=== PATIENT | female | born 1965 | race Caucasian/White ===

== ENCOUNTER 2017-12-28 18:05 | Inpatient (IN) | payer OTHER ==
[~2017-12-28] VITALS: Ht 170.2 cm; Wt 206.4 kg
[~2017-12-28 18:05] MED LIST: ETOMIDATE 20 MG/10 ML ONE; MIDAZOLAM 1 MG/ML, 5ML ONE; PROPOFOL 10 MG/ML, 100ML IV ONE; PROPOFOL 10 MG/ML, 20ML ONE; SUCCINYLCHOLINE 20 MG/ML, 10ML ONE; VECURONIUM 10 MG ONE
[2017-12-28] MEDS ORDERED: ALBUTEROL SULFATE 2.5 MG/3 ML ONE (18:12)
[2017-12-28] MEDS ORDERED: VERAPAMIL 2.5 MG/ML, 2ML IVPush ONE (18:30)
[2017-12-28] MEDS ORDERED: methylPREDNISolone SOD SUCC 125 MG/2 ML IVP ONE (18:30)
[2017-12-28] MEDS ORDERED: SODIUM CHLORIDE FLUSH 10ML SYR IVF ONE ×2 (18:30→19:30)
[2017-12-28] MEDS ORDERED: ALBUTEROL/IPRATROPIUM 2.5MG/0.5MG, 3 ML NPPB SCH (18:30)
[2017-12-28] MEDS ORDERED: FUROSEMIDE 20 MG/2 ML ONE (18:32)
[2017-12-28] MEDS ORDERED: VERAPAMIL 2.5 MG/ML, 2ML ONE (18:32)
[2017-12-28] MEDS ORDERED: methylPREDNISolone SOD SUCC 125 MG/2 ML ONE (18:33)
[2017-12-28] MEDS ORDERED: NITROGLYCERIN/D5W PMX 0 ML ONE (18:35)
[2017-12-28 18:51] LABS: MEAN CORPUSCULAR HEMOGLOBIN 27.8 pg (27.0-34.8); MEAN CORPUSCULAR HGB CONC 31.9 g/dL (32.4-35.8); MEAN CORPUSCULAR VOLUME 87.1 fL (80-100); MEAN PLATELET VOLUME 8.3 fL (7.4-10.4); PLATELET COUNT 465 x10^3/uL (130-400); RED BLOOD COUNT 4.66 x10^6/uL (3.82-5.3); RED CELL DISTRIBUTION WIDTH 17.2 % (9.6-15.2)
[2017-12-28 18:59] LABS: ALBUMIN 3.1 g/dL (3.4-5.0); ANION GAP 15 mmol/L (5-15); CALCIUM 8.5 mg/dL (8.5-10.1); CHLORIDE 105 mmol/L (98-107); CREATININE 1.89 mg/dL (0.55-1.02)
[2017-12-28] MEDS ORDERED: FUROSEMIDE 40 MG/4 ML IV ONE (19:00)
[2017-12-28] MEDS: PROPOFOL 100 ML IV PRN ×2 (19:00→19:31)
[2017-12-28 19:03] LABS: TROPONIN I 0.097 ng/mL (0.000-0.045)
[2017-12-28 19:07] LABS: MD YES
[2017-12-28 19:10] LABS: BAND#(MANUAL) 0.26 x10^3/uL; BANDS%(MANUAL) 1 % (0-7); EOS#(MANUAL) 0.26 x10^3/uL (0.0-0.4); EOS% (MANUAL) 1 % (1-7); METAMYELOCYTES# (MANUAL) 0.26 x10^3/uL (0-0); METAMYELOCYTES% (MANUAL) 1 % (0-1); NRBC % (MANUAL) 1 % (0-1); SEG#(MANUAL) 21.25 x10^3/uL (1.8-6.8); SEGS% (MANUAL) 83 % (42-75)
[2017-12-28 19:11] LABS: INTERNATIONAL NORMALIZED RATIO 1.26 (0.93-1.1); LYMPH#(MANUAL) 2.56 x10^3/uL (1-3.4); LYMPHS% (MANUAL) 10 % (22-44); MONOS#(MANUAL) 1.02 x10^3/uL (0.3-2.7); MONOS% (MANUAL) 4 % (2-9); PROTHROMBIN TIME 12.9 Seconds (9.6-11.5)
[2017-12-28 19:12] LABS: <PLATELET ESTIMATE> INCREASED; <PLT MORPHOLOGY> NORMAL PLT MORPH; ANISOCYTOSIS 1+; POLYCHROMASIA 1+
[2017-12-28] MEDS ORDERED: VANCOMYCIN PER PHARMACY IV ONE (19:30)
[2017-12-28] MEDS ORDERED: PIPERACILLIN/TAZO/PMX 3.375GM 50 ML IVPB ONE (19:30)
[2017-12-28] MEDS ORDERED: SUCCINYLCHOLINE 20 MG/ML, 10ML IVPush ONE (19:30)
[2017-12-28] MEDS ORDERED: ETOMIDATE 20 MG/10 ML IV ONE (19:30)
[2017-12-28] MEDS ORDERED: VANCOMYCIN 2,200 MG in SODIUM CHLORIDE 0.9% 500 ML IV ONE (19:30)
[2017-12-28] MEDS ORDERED: VECURONIUM 10 MG IVPush ONE (19:30)
[2017-12-28] MEDS ORDERED: SODIUM CHLORIDE 0.9% 1,000ML IVBOLUS ONE (19:30)
[2017-12-28] MEDS ORDERED: DILTIAZEM 125 MG in DEXTROSE 5% 100 ML IV SCH (19:31)
[2017-12-28] MEDS ORDERED: SODIUM CHLORIDE FLUSH 10ML SYR IVF PRN (20:00)
[2017-12-28] MEDS ORDERED: PIPERACILLIN/TAZO/PMX 3.375GM 50 ML ONE (20:13)
[2017-12-28] MEDS ORDERED: ONDANSETRON 2MG/ML, 2ML IVPush PRN (20:30)
[2017-12-28] MEDS ORDERED: hydrALAzine 20 MG/ML, 1ML IVPush PRN (20:30)
[2017-12-28] MEDS ORDERED: DILTIAZEM 125 MG in SODIUM CHLORIDE 0.9% 100 ML IV PRN (20:30)
[2017-12-28] MEDS ORDERED: PROPOFOL 100 ML IV PRN (20:49)
[2017-12-28] MEDS: SODIUM CHLORIDE 0.9% 1,000 ML IV SCH (20:52)
[2017-12-28] MEDS ORDERED: LIDOCAINE-MPF 1%, 2ML ENDO PRN (21:00)
[2017-12-28] MEDS ORDERED: PHARMACY MAY ADJ FOR RENAL FX MC SCH (21:00)
[2017-12-28] MEDS ORDERED: HEPARIN 5,000 UNITS/ML, 1ML ONE (21:29)
[2017-12-28] MEDS: HEPARIN 5,000 UNITS/ML, 1ML SQ SCH (21:32)
[2017-12-28] MEDS: INSULIN LISPRO 100 UNITS/ML, PEN SQ-INSULIN SCH (21:41)
[2017-12-28] MEDS ORDERED: ALBUTEROL/IPRATROPIUM 2.5MG/0.5MG, 3 ML ONE (21:53)
[2017-12-28] MEDS ORDERED: PROPOFOL 100 ML IV ONE (23:58)
[2017-12-29] MEDS ORDERED: FURO20TA3 PO (01:14)
[2017-12-29] MEDS ORDERED: RIVA20TA PO (01:14)
[2017-12-29] MEDS ORDERED: LEVO300T4 PO (01:14)
[2017-12-29] MEDS ORDERED: OMEP-110 PO (01:14)
[2017-12-29] MEDS ORDERED: DILT240C9 PO (01:14)
[2017-12-29] MEDS ORDERED: SENN1TAB67 PO (01:14)
[2017-12-29] MEDS ORDERED: ACET250T2 PO (01:14)
[2017-12-29] MEDS ORDERED: CETI10CA PO (01:14)
[2017-12-29] MEDS ORDERED: LISI-170 PO (01:14)
[2017-12-29] MEDS ORDERED: CALCIUM MAG ZINC PO (01:14)
[2017-12-29] MEDS ORDERED: POTA10CA PO (01:14)
[2017-12-29] MEDS ORDERED: MORPHINE ER PO (01:14)
[2017-12-29] MEDS ORDERED: ALEN70TA5 PO (01:14)
[2017-12-29] MEDS ORDERED: TIOT18CA INH (01:14)
[2017-12-29] MEDS ORDERED: VIT C PO (01:14)
[2017-12-29] MEDS ORDERED: HYDR100T25 PO (01:14)
[2017-12-29] MEDS ORDERED: HUMULIN NPH SC (01:14)
[2017-12-29] MEDS ORDERED: INSU100V5 SQ-INSULIN (01:14)
[2017-12-29] MEDS ORDERED: MONT10TA9 PO (01:14)
[2017-12-29] MEDS ORDERED: HYDROCODONE PO (01:14)
[2017-12-29] MEDS ORDERED: FLUT1DIS5 IH (01:14)
[2017-12-29] MEDS ORDERED: ALBUTEROL/IPRATROPIUM 2.5MG/0.5MG, 3 ML ONE (02:14)
[2017-12-29] MEDS: ALBUTEROL/IPRATROPIUM 2.5MG/0.5MG, 3 ML NPPB SCH ×3 (02:20→10:30)
[2017-12-29] MEDS ORDERED: PROPOFOL 100 ML IV ONE ×4 (02:55→09:51)
[2017-12-29 04:49] LABS: MEAN CORPUSCULAR HEMOGLOBIN 27.4 pg (27.0-34.8); MEAN CORPUSCULAR HGB CONC 31.7 g/dL (32.4-35.8); MEAN CORPUSCULAR VOLUME 86.6 fL (80-100); MEAN PLATELET VOLUME 8.3 fL (7.4-10.4); PLATELET COUNT 372 x10^3/uL (130-400); RED BLOOD COUNT 4.36 x10^6/uL (3.82-5.3); RED CELL DISTRIBUTION WIDTH 16.9 % (9.6-15.2)
[2017-12-29 04:50] LABS: ALBUMIN 2.9 g/dL (3.4-5.0); ANION GAP 11 mmol/L (5-15); CALCIUM 7.8 mg/dL (8.5-10.1); CHLORIDE 102 mmol/L (98-107)
[2017-12-29 05:02] LABS: ALANINE AMINOTRANSFERASE 668 U/L (12-78); ALKALINE PHOSPHATASE 101 U/L (45-117); BILIRUBIN,TOTAL 0.9 mg/dL (0.2-1.0); CREATININE 1.78 mg/dL (0.55-1.02); THYROID STIMULATING HORMONE 0.417 mIU/L (0.358-3.740); TOTAL PROTEIN 5.9 g/dL (6.4-8.2)
[2017-12-29 05:30] LABS: BASOPHILS # (AUTO) 0.02 x10^3/uL (0-0.1); BASOPHILS % (AUTO) 0 % (0-1); EOSINOPHILS % (AUTO) 0 % (1-7); LYMPHOCYTES # (AUTO) 0.72 x10^3/uL (1-3.4); LYMPHOCYTES % (AUTO) 4 % (22-44); MD SCAN; MONOCYTES # (AUTO) 0.74 x10^3/uL (0.2-0.8); MONOCYTES % (AUTO) 4 % (2-9); NEUTROPHILS # (AUTO) 18.55 x10^3/uL (1.8-6.8); NEUTROPHILS % (AUTO) 93 % (42-75)
[2017-12-29] MEDS: SODIUM CHLORIDE 0.9% 1,000 ML IV SCH (06:05)
[2017-12-29] MEDS: HEPARIN 5,000 UNITS/ML, 1ML SQ SCH ×3 (06:10→20:53)
[2017-12-29] MEDS ORDERED: HEPARIN 5,000 UNITS/ML, 1ML ONE (06:11)
[2017-12-29] MEDS: INSULIN LISPRO 100 UNITS/ML, PEN SQ-INSULIN SCH ×4 (07:52→23:25)
[2017-12-29] MEDS ORDERED: PANTOPRAZOLE 40 MG IV ONE (11:11)
[2017-12-29] MEDS: PANTOPRAZOLE 40 MG IV IV SCH (11:14)
[2017-12-29] MEDS ORDERED: AMPICILLIN/SULBACTAM 1,500 MG in SODIUM CHLORIDE 0.9% 50 ML IV SCH (12:00)
[2017-12-29] MEDS: PROPOFOL 100 ML IV PRN ×5 (12:42→22:20)
[2017-12-29 14:08] VITALS: BP 167/112
[2017-12-29] MEDS: FUROSEMIDE 40 MG/4 ML IV SCH (17:42)
[2017-12-29] MEDS: DILTIAZEM 125 MG in SODIUM CHLORIDE 0.9% 100 ML IV PRN (17:44)
[2017-12-29] MEDS ORDERED: FENTANYL PF 100 MCG/2ML IVPush PRN (18:00)
[2017-12-29] MEDS ORDERED: AMPICILLIN/SULBACTAM 3,000 MG in SODIUM CHLORIDE 0.9% 50 ML IV SCH (18:00)
[2017-12-29] MEDS: ALBUTEROL/IPRATROPIUM 2.5MG/0.5MG, 3 ML NPPB PRN (18:45)
[2017-12-29] MEDS ORDERED: SODIUM CHLORIDE 0.9% 1,000 ML IV SCH (20:05)
[2017-12-29] MEDS: AMPICILLIN/SULBACTAM 3 GM in SODIUM CHLORIDE 0.9% 100 ML IV SCH (23:24)
[2017-12-30] MEDS: DILTIAZEM 125 MG in SODIUM CHLORIDE 0.9% 100 ML IV PRN ×2 (00:23→05:43)
[2017-12-30] MEDS: PROPOFOL 100 ML IV PRN ×2 (01:44→07:55)
[2017-12-30 04:00] VITALS: BP 146/104
[2017-12-30 05:04] LABS: MEAN CORPUSCULAR HEMOGLOBIN 27.9 pg (27.0-34.8); MEAN CORPUSCULAR HGB CONC 32.2 g/dL (32.4-35.8); MEAN CORPUSCULAR VOLUME 86.6 fL (80-100); MEAN PLATELET VOLUME 8.5 fL (7.4-10.4); PLATELET COUNT 357 x10^3/uL (130-400); RED BLOOD COUNT 4.18 x10^6/uL (3.82-5.3); RED CELL DISTRIBUTION WIDTH 16.3 % (9.6-15.2)
[2017-12-30 05:10] LABS: ANION GAP 7 mmol/L (5-15); CALCIUM 7.8 mg/dL (8.5-10.1); CHLORIDE 103 mmol/L (98-107); CREATININE 1.41 mg/dL (0.55-1.02)
[2017-12-30] MEDS: HEPARIN 5,000 UNITS/ML, 1ML SQ SCH (05:33)
[2017-12-30] MEDS: INSULIN LISPRO 100 UNITS/ML, PEN SQ-INSULIN SCH ×3 (05:33→17:32)
[2017-12-30] MEDS: AMPICILLIN/SULBACTAM 3 GM in SODIUM CHLORIDE 0.9% 100 ML IV SCH ×4 (05:33→23:22)
[2017-12-30 06:10] LABS: MD MORPH REVIEW ONLY
[2017-12-30 06:11] LABS: <PLATELET ESTIMATE> ADEQUATE; <PLT MORPHOLOGY> NORMAL PLT MORPH; ANISOCYTOSIS 1+; BASOPHILS # (AUTO) 0.11 x10^3/uL (0-0.1); BASOPHILS % (AUTO) 1 % (0-1); EOSINOPHILS # (AUTO) 0.03 x10^3/uL (0-0.4); EOSINOPHILS % (AUTO) 0 % (1-7); LYMPHOCYTES % (AUTO) 8 % (22-44); MONOCYTES # (AUTO) 1.07 x10^3/uL (0.2-0.8); MONOCYTES % (AUTO) 6 % (2-9); NEUTROPHILS # (AUTO) 15.15 x10^3/uL (1.8-6.8); NEUTROPHILS % (AUTO) 85 % (42-75); OVALOCYTES 1+
[2017-12-30 06:12] LABS: POLYCHROMASIA 1+
[2017-12-30] MEDS: FUROSEMIDE 40 MG/4 ML IV SCH ×2 (07:55→17:33)
[2017-12-30] MEDS: POTASSIUM CHLORIDE 10% 40 MEQ/30 ML UDC PO SCH ×2 (07:55→20:41)
[2017-12-30] MEDS: PANTOPRAZOLE 40 MG IV IV SCH (07:55)
[2017-12-30] MEDS ORDERED: RIVAROXABAN 20 MG TABLET PO SCH (10:00)
[2017-12-30] MEDS: LEVOTHYROXINE 100 MCG TABLET PO SCH (11:10)
[2017-12-30] MEDS: LISINOPRIL 20 MG TABLET PO SCH (11:10)
[2017-12-30] MEDS: SODIUM CHLORIDE FLUSH 10ML SYR IVF SCH ×2 (11:11→21:14)
[2017-12-30] MEDS ORDERED: LEVOTHYROXINE 125 MCG TABLET ONE (11:13)
[2017-12-30] MEDS ORDERED: LEVOTHYROXINE 75 MCG TABLET ONE (11:13)
[2017-12-30] MEDS: MORPHINE SULFATE 4 MG/ML, 1ML IVPush PRN ×3 (12:07→17:33)
[2017-12-30] MEDS: HYDROcodone/APAP 10/325 MG TABLET PO PRN (13:00)
[2017-12-30] MEDS: ALBUTEROL/IPRATROPIUM 2.5MG/0.5MG, 3 ML NPPB SCH ×2 (14:25→18:53)
[2017-12-30] MEDS ORDERED: DILTIAZEM 125 MG in SODIUM CHLORIDE 0.9% 100 ML IV PRN (20:30)
[2017-12-30] MEDS: DILTIAZEM 240 MG CAP.ER.24H PO SCH (21:14)
[2017-12-31 04:00] VITALS: BP 146/79
[2017-12-31] MEDS: AMPICILLIN/SULBACTAM 3 GM in SODIUM CHLORIDE 0.9% 100 ML IV SCH ×3 (05:14→17:12)
[2017-12-31 05:37] LABS: BASOPHILS # (AUTO) 0.09 x10^3/uL (0-0.1); BASOPHILS % (AUTO) 1 % (0-1); EOSINOPHILS # (AUTO) 0.07 x10^3/uL (0-0.4); EOSINOPHILS % (AUTO) 1 % (1-7); LYMPHOCYTES # (AUTO) 0.87 x10^3/uL (1-3.4); LYMPHOCYTES % (AUTO) 7 % (22-44); MD NO; MEAN CORPUSCULAR HEMOGLOBIN 27.6 pg (27.0-34.8); MEAN CORPUSCULAR HGB CONC 32.2 g/dL (32.4-35.8); MEAN CORPUSCULAR VOLUME 85.7 fL (80-100); MEAN PLATELET VOLUME 8.1 fL (7.4-10.4); MONOCYTES # (AUTO) 0.63 x10^3/uL (0.2-0.8); MONOCYTES % (AUTO) 5 % (2-9); NEUTROPHILS # (AUTO) 10.51 x10^3/uL (1.8-6.8); NEUTROPHILS % (AUTO) 86 % (42-75); PLATELET COUNT 295 x10^3/uL (130-400); RED BLOOD COUNT 4.02 x10^6/uL (3.82-5.3); RED CELL DISTRIBUTION WIDTH 16.3 % (9.6-15.2)
[2017-12-31 06:32] LABS: ANION GAP 8 mmol/L (5-15); CALCIUM 8.6 mg/dL (8.5-10.1); CHLORIDE 105 mmol/L (98-107); CREATININE 0.99 mg/dL (0.55-1.02)
[2017-12-31] MEDS: INSULIN LISPRO 100 UNITS/ML, PEN SQ-INSULIN SCH ×4 (07:00→22:06)
[2017-12-31] MEDS: ALBUTEROL/IPRATROPIUM 2.5MG/0.5MG, 3 ML NPPB SCH ×5 (07:30→19:34)
[2017-12-31] MEDS: FUROSEMIDE 40 MG/4 ML IV SCH ×2 (08:32→17:13)
[2017-12-31] MEDS: POTASSIUM CHLORIDE 10% 40 MEQ/30 ML UDC PO SCH ×2 (08:32→21:44)
[2017-12-31] MEDS: PANTOPRAZOLE 40 MG IV IV SCH (08:32)
[2017-12-31] MEDS: LISINOPRIL 20 MG TABLET PO SCH (08:33)
[2017-12-31] MEDS: SODIUM CHLORIDE FLUSH 10ML SYR IVF SCH ×2 (08:33→21:45)
[2017-12-31] MEDS: LEVOTHYROXINE 100 MCG TABLET PO SCH (08:33)
[2017-12-31] MEDS: RIVAROXABAN 20 MG TABLET PO SCH (08:33)
[2017-12-31] MEDS: FLUTICASONE/VILANTEROL 200-25MCG/INH INH SCH (09:00)
[2017-12-31] MEDS: HYDROcodone/APAP 10/325 MG TABLET PO PRN ×3 (11:11→13:35)
[2017-12-31] MEDS: MORPHINE SULFATE 4 MG/ML, 1ML IVPush PRN (11:13)
[2017-12-31] MEDS ORDERED: DIGOXIN 0.25 MG/ML, 2ML IVPush ONE (12:30)
[2017-12-31] MEDS ORDERED: HYDROcodone/APAP 10/325 MG TABLET PO ONE (13:30)
[2017-12-31 20:00] VITALS: BP 120/69
[2017-12-31] MEDS: DILTIAZEM 240 MG CAP.ER.24H PO SCH (21:44)
[2018-01-01] MEDS: AMPICILLIN/SULBACTAM 3 GM in SODIUM CHLORIDE 0.9% 100 ML IV SCH ×5 (01:09→23:16)
[2018-01-01 02:00] VITALS: BP 128/62
[2018-01-01 04:14] LABS: BASOPHILS # (AUTO) 0.03 x10^3/uL (0-0.1); BASOPHILS % (AUTO) 0 % (0-1); EOSINOPHILS # (AUTO) 0.09 x10^3/uL (0-0.4); EOSINOPHILS % (AUTO) 1 % (1-7); LYMPHOCYTES # (AUTO) 0.73 x10^3/uL (1-3.4); LYMPHOCYTES % (AUTO) 7 % (22-44); MD NO; MEAN CORPUSCULAR HEMOGLOBIN 27.8 pg (27.0-34.8); MEAN CORPUSCULAR HGB CONC 32.2 g/dL (32.4-35.8); MEAN CORPUSCULAR VOLUME 86.3 fL (80-100); MONOCYTES # (AUTO) 0.67 x10^3/uL (0.2-0.8); MONOCYTES % (AUTO) 7 % (2-9); NEUTROPHILS # (AUTO) 8.36 x10^3/uL (1.8-6.8); NEUTROPHILS % (AUTO) 85 % (42-75); PLATELET COUNT 268 x10^3/uL (130-400); RED BLOOD COUNT 3.87 x10^6/uL (3.82-5.3); RED CELL DISTRIBUTION WIDTH 16.4 % (9.6-15.2)
[2018-01-01 06:30] LABS: ANION GAP 6 mmol/L (5-15); CALCIUM 8.8 mg/dL (8.5-10.1); CHLORIDE 105 mmol/L (98-107); CREATININE 0.95 mg/dL (0.55-1.02)
[2018-01-01] MEDS: ALBUTEROL/IPRATROPIUM 2.5MG/0.5MG, 3 ML NPPB SCH ×4 (06:53→19:21)
[2018-01-01 07:00] VITALS: BP 111/61
[2018-01-01] MEDS: INSULIN LISPRO 100 UNITS/ML, PEN SQ-INSULIN SCH ×4 (08:03→22:16)
[2018-01-01] MEDS ORDERED: LEVOTHYROXINE 150 MCG TABLET ONE (08:18)
[2018-01-01] MEDS: FUROSEMIDE 40 MG/4 ML IV SCH ×2 (08:49→17:26)
[2018-01-01] MEDS: HYDROcodone/APAP 10/325 MG TABLET PO PRN ×2 (08:53→23:16)
[2018-01-01] MEDS: RIVAROXABAN 20 MG TABLET PO SCH (08:55)
[2018-01-01] MEDS: PANTOPRAZOLE 40 MG IV IV SCH (08:55)
[2018-01-01] MEDS: SODIUM CHLORIDE FLUSH 10ML SYR IVF SCH ×2 (08:56→20:57)
[2018-01-01] MEDS: POTASSIUM CHLORIDE 10% 40 MEQ/30 ML UDC PO SCH ×2 (08:56→20:58)
[2018-01-01] MEDS: LEVOTHYROXINE 100 MCG TABLET PO SCH (08:57)
[2018-01-01] MEDS: LISINOPRIL 20 MG TABLET PO SCH (08:57)
[2018-01-01] MEDS: FLUTICASONE/VILANTEROL 200-25MCG/INH INH SCH (09:38)
[2018-01-01 13:43] VITALS: BP 120/63
[2018-01-01 16:32] VITALS: BP 137/79
[2018-01-01 21:24] VITALS: BP 111/69
[2018-01-01] MEDS: DILTIAZEM 240 MG CAP.ER.24H PO SCH (22:16)
[2018-01-02 02:56] VITALS: BP 120/71
[2018-01-02] MEDS: ALBUTEROL/IPRATROPIUM 2.5MG/0.5MG, 3 ML NPPB PRN (05:14)
[2018-01-02 05:40] LABS: BASOPHILS # (AUTO) 0.03 x10^3/uL (0-0.1); BASOPHILS % (AUTO) 0 % (0-1); EOSINOPHILS # (AUTO) 0.13 x10^3/uL (0-0.4); EOSINOPHILS % (AUTO) 1 % (1-7); LYMPHOCYTES # (AUTO) 0.95 x10^3/uL (1-3.4); LYMPHOCYTES % (AUTO) 10 % (22-44); MD NO; MEAN CORPUSCULAR HEMOGLOBIN 27.7 pg (27.0-34.8); MEAN CORPUSCULAR HGB CONC 32.2 g/dL (32.4-35.8); MEAN CORPUSCULAR VOLUME 86.1 fL (80-100); MEAN PLATELET VOLUME 8.3 fL (7.4-10.4); MONOCYTES # (AUTO) 0.74 x10^3/uL (0.2-0.8); MONOCYTES % (AUTO) 7 % (2-9); NEUTROPHILS # (AUTO) 8.06 x10^3/uL (1.8-6.8); NEUTROPHILS % (AUTO) 81 % (42-75); PLATELET COUNT 286 x10^3/uL (130-400); RED CELL DISTRIBUTION WIDTH 16.5 % (9.6-15.2)
[2018-01-02 05:46] LABS: CALCIUM 8.6 mg/dL (8.5-10.1); CHLORIDE 102 mmol/L (98-107)
[2018-01-02 05:50] LABS: ANION GAP 6 mmol/L (5-15); CREATININE 0.87 mg/dL (0.55-1.02)
[2018-01-02] MEDS ORDERED: PANTOPROZOLE 40MG TABLET PO SCH (06:00)
[2018-01-02] MEDS ORDERED: LEVOTHYROXINE 100 MCG TABLET PO SCH (06:00)
[2018-01-02] MEDS: FUROSEMIDE 40 MG/4 ML IV SCH (06:11)
[2018-01-02] MEDS: AMPICILLIN/SULBACTAM 3 GM in SODIUM CHLORIDE 0.9% 100 ML IV SCH ×2 (06:11→11:48)
[2018-01-02] MEDS: HYDROcodone/APAP 10/325 MG TABLET PO PRN (06:35)
[2018-01-02 06:58] VITALS: BP 115/75
[2018-01-02] MEDS: ALBUTEROL/IPRATROPIUM 2.5MG/0.5MG, 3 ML NPPB SCH ×3 (07:10→13:00)
[2018-01-02] MEDS: RIVAROXABAN 20 MG TABLET PO SCH (08:14)
[2018-01-02] MEDS: FLUTICASONE/VILANTEROL 200-25MCG/INH INH SCH (08:14)
[2018-01-02] MEDS: LISINOPRIL 20 MG TABLET PO SCH (08:14)
[2018-01-02] MEDS: POTASSIUM CHLORIDE 10% 40 MEQ/30 ML UDC PO SCH (08:14)
[2018-01-02] MEDS: SODIUM CHLORIDE FLUSH 10ML SYR IVF SCH (08:15)
[2018-01-02] MEDS: INSULIN LISPRO 100 UNITS/ML, PEN SQ-INSULIN SCH ×2 (08:15→11:00)
[2018-01-02 08:18] VITALS: BP 111/81
[2018-01-02 12:09] VITALS: BP 115/69
== END 2018-01-02 15:10 | disposition home or self-care (01) | DRG 208 ==
LOC: SUATTDRO 20:04 → ED 20:07 → EDIP 20:45 → CCU 12-29 11:42 → 5SO 01-01 16:33 → DCLOUNGE 01-02 14:45
PROVIDERS: ADMIT Hospitalist; ATTEND Hospitalist
PROC: 02HV33Z Insertion of Infusion Device into Superior Vena Cava, Percutaneous Approach (ICD-10-PCS; principal; 2017-12-28)
PROC: 5A1945Z Respiratory Ventilation, 24-96 Consecutive Hours (ICD-10-PCS; 2017-12-28)
PROC: B548ZZA Ultrasonography of Superior Vena Cava, Guidance (ICD-10-PCS; 2017-12-28)
PROC: 5A09357 Assistance with Respiratory Ventilation, Less than 24 Consecutive Hours, Continuous Positive Airway Pressure (ICD-10-PCS; 2017-12-28)
PROC: 0BH17EZ Insertion of Endotracheal Airway into Trachea, Via Natural or Artificial Opening (ICD-10-PCS; 2017-12-28)
DX: J96.21 Acute and chronic respiratory failure with hypoxia (principal); E43 Unspecified severe protein-calorie malnutrition; I50.43 Acute on chronic combined systolic (congestive) and diastolic (congestive) heart failure; N17.0 Acute kidney failure with tubular necrosis; D68.69 Other thrombophilia; E87.4 Mixed disorder of acid-base balance; J45.901 Unspecified asthma with (acute) exacerbation; Z99.11 Dependence on respirator [ventilator] status; Z68.45 Body mass index [BMI] 70 or greater, adult; J96.22 Acute and chronic respiratory failure with hypercapnia; E03.9 Hypothyroidism, unspecified; E11.65 Type 2 diabetes mellitus with hyperglycemia; E66.01 Morbid (severe) obesity due to excess calories; G89.4 Chronic pain syndrome; I48.2 Chronic atrial fibrillation; Z79.01 Long term (current) use of anticoagulants; Z87.01 Personal history of pneumonia (recurrent); Z99.81 Dependence on supplemental oxygen
CPT/HCPCS: 31500; 36415; 36569; 36600; 71045; 80047; 80048; 80053; 82040; 82803; 82962; 83605; 83735; 83880; 84100; 84145; 84443; 84478; 84484; 85025; 85610; 85730; 87040; 87070; 87077; 87081; 87186; 87205; 93005; 94002; 94003; 94640; 94660; C8929; J0295; J1644; J1940; J2250; J2543; J2704; J3010; J3370; J7620; C9113; J0330; J0360; J1160; J1815; J2930; J7030; J7040